=== PATIENT | male | born 1990 | race Caucasian/White ===

== ENCOUNTER 2019-10-21 16:39 | Emergency (ER) | payer SELFPAY ==
[~2019-10-21] VITALS: Ht 190.5 cm; Wt 95.3 kg
[2019-10-21 17:00] VITALS: BP 120/61
--- NOTE | 2019-10-21 18:26 | NUR ---
28 Y/O MALE FROM HOME C/O LT EAR PAIN WITH SMALL AMOUNT OF BLOOD IN EAR X 2 DAYS. PT STATES HE PLACED Q-TIP IN EAR AND A SMALL AMOUNT OF BLOOD NOTICED. PLACED AIRPOD IN EAR TODAY AND SLIGHT DRIED BLOOD NOTED. DENIES CHANGE IN HEARING. VSS MEDHX:DENIES
--- NOTE | 2019-10-21 18:27 | NUR ---
Patient discharged with v/s stable. Written and verbal after care instructions given and explained. Patient alert, oriented and verbalized understanding of instructions. Ambulatory with steady gait. All questions addressed prior to discharge. ID band removed. Patient advised to follow up with PMD. Rx of AMOXICILLIN 875MG AND OFLOXACIN 0.3% DROP given. Patient educated on indication of medication including possible reaction and side effects. Opportunity to ask questions provided and answered.
== END 2019-10-21 18:27 | disposition home or self-care (01) ==
LOC: MED 16:39
DX: H60.92 Unspecified otitis externa, left ear (principal)
CPT/HCPCS: 99283